=== PATIENT | male | born 1945 | race Caucasian/White ===

== ENCOUNTER → 2017-09-14 | Outpatient (CLI) | payer OTHER, MEDICARE ==
[~2017-09-14] MED LIST: IOPAMIDOL (ISOVUE-300) 100 ML BTL ONE
== END ==
LOC: FIMAGING 10:27
PROVIDERS: ATTEND Family Medicine
DX: R49.0 Dysphonia (principal); J98.4 Other disorders of lung; I25.10 Atherosclerotic heart disease of native coronary artery without angina pectoris
CPT/HCPCS: 71260; Q9967

== ENCOUNTER → 2017-10-16 | Outpatient (CLI) | payer OTHER, MEDICARE | PROVIDERS: ATTEND Psychiatry & Neurology Neurology | DX: R13.10 Dysphagia, unspecified (principal); J38.00 Paralysis of vocal cords and larynx, unspecified | CPT/HCPCS: 74220; 74230; 92611; G8996; G8997; G8998 ==

== ENCOUNTER → 2017-10-20 | Outpatient (CLI) | payer OTHER, MEDICARE | LOC: FIMAGING 10:16 | PROVIDERS: ATTEND Psychiatry & Neurology Neurology | DX: R13.10 Dysphagia, unspecified (principal); R47.1 Dysarthria and anarthria ==

== ENCOUNTER → 2017-10-26 | Outpatient (CLI) | payer OTHER, MEDICARE | LOC: BHFA 13:30 | PROVIDERS: ATTEND Internal Medicine Cardiovascular Disease | DX: R94.31 Abnormal electrocardiogram [ECG] [EKG] (principal) | CPT/HCPCS: 78452; 93017; A9500 ==

== ENCOUNTER → 2017-11-08 | Outpatient (CLI) | payer OTHER, MEDICARE | LOC: BHLMT 10:00 | PROVIDERS: ATTEND Internal Medicine Interventional Cardiology | DX: R94.31 Abnormal electrocardiogram [ECG] [EKG] (principal); R01.1 Cardiac murmur, unspecified; R09.89 Other specified symptoms and signs involving the circulatory and respiratory systems; I25.10 Atherosclerotic heart disease of native coronary artery without angina pectoris | CPT/HCPCS: 93306-PO; 93880-PO ==

== ENCOUNTER → 2017-11-16 | Outpatient (CLI) | payer OTHER, MEDICARE ==
[~2017-11-16] MED LIST changes: +IOPAMIDOL (ISOVUE 370) 100 ML BTL IV ONE; -IOPAMIDOL (ISOVUE-300) 100 ML BTL ONE
== END ==
LOC: FIMAGING 13:44
PROVIDERS: ATTEND Internal Medicine Cardiovascular Disease
DX: I67.2 Cerebral atherosclerosis (principal); I65.23 Occlusion and stenosis of bilateral carotid arteries; E78.00 Pure hypercholesterolemia, unspecified; I10 Essential (primary) hypertension
CPT/HCPCS: 70498; Q9967

== ENCOUNTER 2017-12-15 07:59 | Day surgery (SDC) | payer OTHER, MEDICARE ==
[2017-12-15] MEDS ORDERED: FAMOTIDINE 20 MG TAB PO ONE (08:04)
[2017-12-15] MEDS ORDERED: DIAZEPAM 5 MG TAB PO ONE (08:04)
[2017-12-15] MEDS ORDERED: diphenhydrAMINE 25 MG CAP PO ONE ×2 (08:04→08:41)
[2017-12-15] MEDS ORDERED: ASPIRIN EC 325 MG TAB PO ONE ×2 (08:04→08:41)
[2017-12-15] MEDS ORDERED: NS 1,000 ML IV ONE (08:04)
--- NOTE | 2017-12-15 08:33 | CPEKG ---
Heart Rate: 63 RR Interval: 952 P-R Interval: 148 QRSD Interval: 160 QT Interval: 456 QTC Interval: 467 P Allen: 13 QRS Allen: -59 T Wave Allen: -22 EKG Severity - ABNORMAL ECG - EKG Impression: SINUS RHYTHM EKG Impression: RIGHT BUNDLE BRANCH BLOCK Electronically Signed By: Rashel Gardner 16-Dec-2017 08:24:52
[2017-12-15] MEDS ORDERED: DIAZEPAM 5 MG TAB ONE (08:41)
[2017-12-15 08:51] LABS: PLATELET COUNT 205 10^3/uL (150-400)
[2017-12-15 09:07] LABS: INR 1.09 (0.83-1.16); PROTIME(PATIENT) 14.3 SEC (12.0-15.0)
[2017-12-15] MEDS ORDERED: LIDOCAINE 1% 300 MG/30 ML SDV ONE (09:08)
[2017-12-15] MEDS ORDERED: MIDAZOLAM 2 MG/2 ML VIAL ONE (09:09)
[2017-12-15] MEDS ORDERED: VERAPAMIL 5 MG/2 ML VIAL ONE (09:09)
[2017-12-15] MEDS ORDERED: HEPARIN 10,000 UNIT/10 ML MDV (1,000 UNIT/ML) ONE (09:09)
[2017-12-15] MEDS ORDERED: IOPAMIDOL (ISOVUE-370) 150 ML BTL IV ONE (09:09)
[2017-12-15] MEDS ORDERED: fentaNYL 100 MCG/2 ML INJ ONE (09:09)
--- NOTE | 2017-12-15 09:33 | PDHPUP ---
History & Physical Update H&P update statement: This history and physical update is based on an assessment of the patient which was completed after admission or registration (within 24 hours), but prior to the surgery/procedure. H&P update: H&P reviewed & patient examined, no change in patient's condition since H&P completed
--- NOTE | 2017-12-15 09:33 | PDPROPOC ---
Sedation Plan of Care ASA Classification: ASA 2 Planned drugs: fentanyl, midazolam Mallampati Score: Class 1 Mallampati Reference Image: Patient passed 3-3-2 rule?: Yes
[2017-12-15] MEDS ORDERED: HYDROCODONE/APAP 5/325 TAB PO PRN (11:11)
[2017-12-15] MEDS ORDERED: OXYCODONE/APAP 5/325 TAB PO PRN (11:11)
[2017-12-15] MEDS ORDERED: ATROPINE SULFATE 1 MG/10 ML SYR IVP PRN (11:11)
[2017-12-15] MEDS ORDERED: NITROGLYCERIN 0.4 MG BTL SL PRN (11:11)
[2017-12-15] MEDS ORDERED: ONDANSETRON 4 MG/2 ML VIAL IVP PRN (11:11)
--- NOTE | 2017-12-20 13:39 | PDDXCAT ---
Diagnostic Cath Note - . Date: 12/20/17 Designer: Tree Indication: other (Abnormal calcium score, intermediate risk stress myocardial perfusion imaging study.) - Materials Left Heart Cath size: 5F Left Heart Cath materials: JL3.5, JR4.0, pigtail - Findings-Left Heart Catheterization LM: The left main is a large caliber vessel with appropriate bifurcation into the left anterior descending and circumflex distributions. The left main has no significant high-grade disease. LAD: The left anterior descending is a large caliber transapical vessel. There are 2 diagonal branches noted. There is a 90% lesion at the ostium of the 1st diagonal branch. In the distal LAD there are tandem high-grade 80% lesions noted. The entirety of the left anterior descending is noted to be heavily calcified. LCX: The circumflex is large caliber and codominant. The PDA is identified. There is a large principal obtuse marginal that bifurcates. There is a small PL branch. There is extensive calcification without high grade disease. RCA: The right coronary artery is dominant. The PDA and 2 posterolateral branches are identified. There is a high-grade lesion (90%) appreciated in the proximal segment of the PDA. The right coronary artery is noted to be extensively calcified in the proximal segment LVEF: 65-70%. Wall motion: Normal. Complications: None. Estimated blood loss: <50ml Closure method: manual pressure Assessment: 1. Distal/branch vessel coronary artery disease as described above. 2. Preserved left ventricular systolic function with normal wall motion. 3. No significant valvular heart disease identified. 4. History of abnormal stress myocardial perfusion imaging. Plan: Medical management. Intervention: None.
== END 2017-12-15 18:52 | disposition home or self-care (01) ==
LOC: FCATH 07:59
PROVIDERS: ATTEND Internal Medicine Cardiovascular Disease
PROC: B2111ZZ Fluoroscopy of Multiple Coronary Arteries using Low Osmolar Contrast (ICD-10-PCS; principal; 2017-12-15)
PROC: 4A023N7 Measurement of Cardiac Sampling and Pressure, Left Heart, Percutaneous Approach (ICD-10-PCS; principal; 2017-12-15)
PROC: B2151ZZ Fluoroscopy of Left Heart using Low Osmolar Contrast (ICD-10-PCS; principal; 2017-12-15)
DX: I45.10 Unspecified right bundle-branch block (principal); E11.3219 Type 2 diabetes mellitus with mild nonproliferative diabetic retinopathy with macular edema, unspecified eye; I10 Essential (primary) hypertension; Z86.010 Personal history of colon polyps; E78.00 Pure hypercholesterolemia, unspecified; Z79.4 Long term (current) use of insulin
CPT/HCPCS: 93005; 93458; C1769; C1887; J1644; J2250; J3010; Q9967

== ENCOUNTER → 2019-01-21 | Outpatient (CLI) | payer OTHER, MEDICARE | LOC: BHLMT 09:15 | PROVIDERS: ATTEND Internal Medicine Cardiovascular Disease | DX: I45.10 Unspecified right bundle-branch block (principal); I35.0 Nonrheumatic aortic (valve) stenosis | CPT/HCPCS: 93306-PO ==

== ENCOUNTER 2019-02-13 08:29 | Day surgery (SDC) | payer OTHER, MEDICARE ==
[2019-02-13] MEDS ORDERED: ASPIRIN EC 325 MG TAB PO ONE (08:31)
[2019-02-13] MEDS ORDERED: DIAZEPAM 5 MG TAB PO ONE (08:31)
[2019-02-13] MEDS ORDERED: FAMOTIDINE 20 MG TAB PO ONE (08:31)
[2019-02-13] MEDS ORDERED: diphenhydrAMINE 25 MG CAP PO ONE (08:31)
[2019-02-13] MEDS ORDERED: NS 1,000 ML IV ONE (08:31)
--- NOTE | 2019-02-13 09:11 | CPEKG ---
Test Reason : OPEN Blood Pressure : / mmHG Vent. Rate : 065 BPM Atrial Rate : 064 BPM P-R Int : 149 ms QRS Dur : 164 ms QT Int : 447 ms P-R-T Axes : 016 -49 -18 degrees QTc Int : 465 ms Sinus rhythm RBBB and LAFB Confirmed by Cornell Claudio ([id number]) on 02/13/2019 9:11:01 AM Referred By: Cale Leavitt Confirmed By:Cornell Claudio
[2019-02-13 09:12] LABS: PLATELET COUNT 275 10^3/uL (150-400)
[2019-02-13 09:19] LABS: INR 1.08 (0.83-1.16); PROTIME(PATIENT) 13.6 SEC (12.0-15.0)
[2019-02-13] MEDS ORDERED: VERAPAMIL 5 MG/2 ML VIAL ONE (09:53)
[2019-02-13] MEDS ORDERED: fentaNYL 100 MCG/2 ML INJ ONE (09:53)
[2019-02-13] MEDS ORDERED: MIDAZOLAM 2 MG/2 ML VIAL ONE (09:53)
[2019-02-13] MEDS ORDERED: LIDOCAINE 1% 300 MG/30 ML SDV ONE (09:53)
[2019-02-13] MEDS ORDERED: HEPARIN 10,000 UNIT/10 ML MDV (1,000 UNIT/ML) ONE (09:53)
[2019-02-13] MEDS ORDERED: IOPAMIDOL (ISOVUE-370) 150 ML BTL IV ONE (09:54)
--- NOTE | 2019-02-13 10:13 | PDPROPOC ---
Sedation Plan of Care Sedation Plan of Care: vital signs stable, mental status noted, patient educated of risks, benefits, alternatives, patient can tolerate sedation ASA Classification: ASA 2 Planned drugs: fentanyl, midazolam Mallampati Score: Class 2 Mallampati Reference Image: Patient passed 3-3-2 rule?: Yes
[2019-02-13] MEDS ORDERED: ONDANSETRON 4 MG/2 ML VIAL IVP PRN (10:52)
[2019-02-13] MEDS ORDERED: ATROPINE SULFATE 1 MG/10 ML SYR IVP PRN (10:52)
--- NOTE | 2019-02-13 11:04 | PDDXCAT ---
Diagnostic Cath Note - . Date: 02/13/19 Heel Builder: Tree Indication: other (Severe aortic stenosis, known CAD with plans for aortic valve replacement surgery.) - Materials Left Heart Cath size: 6F Left Heart Cath materials: standard multipack (JL4, JR4, pigtail) - Findings-Left Heart Catheterization LM: Large caliber vessel. Appropriate bifurcation into the left anterior descending and circumflex distributions. There is an eccentric distal 20% lesion noted within the left main. LAD: Large caliber transapical vessel. During its course toward the apex there are 2 diagonal branches identified. Within the [place] LAD there is an eccentric proximal 20% stenosis. In the distal vessel the LAD is subtotally occluded. The distal LAD is diffusely diseased. The 1st diagonal branch is a small-caliber vessel with an 80% ostial stenosis. LCX: Moderate caliber vessel. A single bifurcating obtuse marginal branch and a posterolateral branch are identified. The superior branch of the bifurcating obtuse marginal branch contains a proximal 50% stenosis in a small caliber vessel. RCA: Moderate caliber dominant vessel. The PDA and 2 posterolateral branches are noted. Both of these vessels are small caliber. The proximal portion of the PDA is subtotally occluded. LVEF: Left ventriculography was not performed. Complications: None. Estimated blood loss: <50ml Closure method: Angioseal Assessment: 1. Coronary artery disease as described above with branch vessel disease involving the 1st diagonal branch, a superior branch of the 1st obtuse marginal and the proximal portion of the PDA. 2. Known critical aortic stenosis. Plan: The patient will undergo aortic valve replacement surgery with attempts at coronary revascularization.
== END 2019-02-13 14:00 | disposition home or self-care (01) ==
LOC: FCATH 08:29
PROVIDERS: ATTEND Internal Medicine Cardiovascular Disease
DX: I35.0 Nonrheumatic aortic (valve) stenosis (principal); I25.10 Atherosclerotic heart disease of native coronary artery without angina pectoris; I45.10 Unspecified right bundle-branch block; E11.3299 Type 2 diabetes mellitus with mild nonproliferative diabetic retinopathy without macular edema, unspecified eye; I10 Essential (primary) hypertension; E78.5 Hyperlipidemia, unspecified; F52.21 Male erectile disorder; E66.9 Obesity, unspecified; Z79.4 Long term (current) use of insulin; Z86.010 Personal history of colon polyps; Z82.49 Family history of ischemic heart disease and other diseases of the circulatory system
CPT/HCPCS: C1760; J1644; J2250; J3010; Q9967

== ENCOUNTER 2019-02-27 07:24 | Inpatient (IN) | payer OTHER, MEDICARE ==
[~2019-02-27 07:24] MED LIST changes: +ADENOSINE 6 MG/2 ML VIAL ONE; +ALBUMIN 5% 250 ML BOTTLE IV ONE; +AMINOCAPROIC ACID 5 GM/20 ML VIAL ONE; +AMIODARONE HCL 150 MG/3 ML VIAL ONE; +CALCIUM CHLORIDE 1 GM/10 ML INJ ONE; +CITRATE DEXTROSE SOLN 500 ML BAG ONE; +DOPamine/DEXTROSE 400 MG/250 ML BAG IV ONE; +HEPARIN 10,000 UNIT/10 ML MDV (1,000 UNIT/ML) ONE; -IOPAMIDOL (ISOVUE 370) 100 ML BTL IV ONE; +LIDOCAINE 2% 100 MG/5 ML SYR ONE; +MAGNESIUM SULFATE 1 GM/2 ML VIAL ONE; +MILRINONE/DEXTROSE/100 ML BAG IV ONE; +NA BICARBONATE 50 MEQ/50 ML VIAL ONE; +NITROGLYCERIN/D5W 50 MG/250 ML BOTTLE IV ONE; +PROTAMINE SULFATE 50 MG/5 ML VIAL IVP ONE; +SODIUM BICARBONATE 50 MEQ/50 ML SYR ONE; +ceFAZolin 1 GM VIAL ONE; +methylPREDNISolone SOD SUCC 1 GM/8 ML VIAL ONE; +niCARdipine/NACL/200 ML BAG IV ONE
[2019-02-27] MEDS ORDERED: MUPIROCIN 2% 22 GM OINT NS ONE (07:36)
[2019-02-27] MEDS ORDERED: CITRATE DEXTROSE SOLN 500 ML BAG MISC ONE (07:36)
[2019-02-27] MEDS ORDERED: AMINOCAPROIC ACID 5 GM/20 ML VIAL IV ONE (07:36)
[2019-02-27] MEDS ORDERED: ceFAZolin 2 GM/DEXTROSE 100 ML IV ONE (07:36)
[2019-02-27] MEDS ORDERED: LR 1,000 ML IV ONE (07:38)
[2019-02-27] MEDS ORDERED: PAPAVERINE HCL 60 MG/2 ML SDV ONE ×2 (07:48→08:29)
[2019-02-27] MEDS ORDERED: VERAPAMIL 5 MG/2 ML VIAL ONE (07:48)
--- NOTE | 2019-02-27 08:12 | PDANEPAE ---
ANE History of Present Illness CAD, ANE Past Medical History - Cardiovascular History Hx Hypertension: Yes Hx Arrhythmias: Yes Hx Chest Pain: No Hx Coronary Artery / Peripheral Vascular Disease: No Hx CHF / Valvular Disease: No Hx Palpitations: No Cardiovascular History Comment: RBBB - Pulmonary History Hx COPD: No Hx Asthma/Reactive Airway Disease: No Hx Recent Upper Respiratory Infection: No Hx Oxygen in Use at Home: No Hx Sleep Apnea: No Sleep Apnea Screening Result - Last Documented: Positive Pulmonary History Comment: PNEUMONIA X2 IN PAST. 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 - Neurologic History Hx Cerebrovascular Accident: No Hx Seizures: No Hx Dementia: No - Endocrine History Hx Diabetes: Yes Hypothyroid: No Hyperthyroid: No Endocrine History Comment: DM II - Renal History Hx Renal Disorders: No - Liver History Hx Hepatic Disorders: No - Neurological & Psychiatric Hx Hx Neurological and Psychiatric Disorders: No - Cancer History Hx Cancer: No - Congenital Disorder History Hx Congenital Disorders: No - GI History Hx Gastrointestinal Disorders: No Gastrointestinal History Comment: ACID REFLUX - Other Health History Other Health History: NEG - Chronic Pain History Chronic Pain: Yes (R KNEE, L SHOULDER, R FOOT) - Surgical History Prior Surgeries: CARDIAC CATH X2 LAST 03/15/19. CATARACTS. TONSILLECTOMY. WISDOM TEETH. APPENDECTOMY. ABD ABSCESS. COLONOSCOPIES ANE Review of Systems Review of systems is: negative Review of Systems: - Exercise capacity METS (RN): 4 METS ANE Patient History - Allergies Allergies/Adverse Reactions: newspaper ink Allergy (Uncoded 10/06/17 08:24) - Home Medications Home medications: home medication list seen and reviewed Home Medications: Carvedilol [Coreg (*)] 12.5 mg PO BIDMEAL 12/08/17 [Last Taken 02/12/19] Exenatide [Byetta] 10 mcg SQ BIDMEAL 12/08/17 [Last Taken 02/13/19] Insulin Detemir [Levemir] 30 unit SQ HS 12/08/17 [Last Taken 02/12/19] Lisinopril/Hctz 20/12.5MG [Zestoretic/Prinzide 20/12.5MG (*)] 2 ea PO DAILY 12/24 [Last Taken 02/12/19] amLODIPine BESYLATE [Norvasc 5 mg (*)] 5 mg PO HS 12/08/17 [Last Taken 02/12/19] metFORMIN HCL [Glucophage 1000 mg] 1,000 mg PO BID 12/08/17 [Last Taken 08:00] Atorvastatin Calcium [Lipitor 40 mg (*)] 40 mg PO HS 12/15/17 [Last Taken ] Psyllium Husk (with Sugar) [Metamucil Packet] 1 each PO DAILY 12/15/17 [Last Taken 12/14/17 21:00] Aspirin EC [Aspirin EC 81 mg (*)] 81 mg PO HS 02/06/19 [Last Taken 02/12/19] - NPO status NPO Status: no food or drink >8 hours NPO Since - Liquids (Date): 02/26/19 NPO Since - Liquids (Time): 20:00 NPO Since - Solids (Date): 02/26/19 NPO Since - Solids (Time): 20:00 - Anes Hx Anes Hx: no prior problems - Smoking Hx Smoking Status: Never smoked - Family Anes Hx Family Anes Hx: none Family Hx Anesthesia Complications: NEG ANE Labs/Vital Signs - Vital Signs Blood Pressure: 149/65 Heart Rate: 59 Respiratory Rate: 9 O2 Sat (%): 99 Height: 172.72 cm Weight: 90.718 kg ANE Physical Exam - Airway Neck exam: FROM Mallampati Score: Class 2 Mouth exam: normal dental/mouth exam - Pulmonary Pulmonary: no respiratory distress, clear to auscultation - Cardiovascular Cardiovascular: regular rate and rhythym, no murmur, rub, or gallop - ASA Status ASA Status: IV ANE Anesthesia Plan Anesthesia Plan: general endotracheal anesthesia (VOCAL CORD MAY NOT CLOSE AFTER INTUBATION, PT AND FAMILY AWARE) Lines/Monitors: arterial line, central line, KAYLEIGH
[2019-02-27] MEDS ORDERED: ROCURONIUM 100 MG/10 ML VIAL ONE (08:15)
[2019-02-27] MEDS ORDERED: PROPOFOL 200 MG/20 ML VIAL ONE (08:15)
[2019-02-27] MEDS ORDERED: fentaNYL 250 MCG/5 ML INJ ONE (08:15)
[2019-02-27] MEDS ORDERED: HEPARIN 10,000 UNIT/10 ML MDV (1,000 UNIT/ML) ONE ×3 (08:16)
[2019-02-27] MEDS ORDERED: LIDOCAINE 2% 5 ML SDV ONE (08:16)
--- NOTE | 2019-02-27 08:44 | PDHPUP ---
History & Physical Update H&P update statement: This history and physical update is based on an assessment of the patient which was completed after admission or registration (within 24 hours), but prior to the surgery/procedure. H&P update: H&P reviewed & patient examined, changes noted (CP on exertion, resolves with rest)
[2019-02-27] MEDS ORDERED: VERAPAMIL 5 MG, NITROGLYCERIN 2.5 MG, HEPARIN 500 UNIT, SODIUM BICARBONATE 0.2 MEQ in L... MISC ONE (10:00)
[2019-02-27] MEDS ORDERED: NOREPINEPHRINE BITARTRATE 16 MG in NS 250 ML IV ONE (10:00)
[2019-02-27] MEDS ORDERED: PHENYLEPHRINE HCL 50 MG in NS 250 ML IV ONE (10:00)
[2019-02-27] MEDS ORDERED: PAPAVERINE HCL 60 MG, VERAPAMIL 5 MG in SYRINGE 0 ML IV ONE (10:00)
[2019-02-27] MEDS ORDERED: MANNITOL 25% 12.5 GM/50 ML VIAL IVP ONE (10:00)
[2019-02-27] MEDS ORDERED: INSULIN REGULAR HUMAN 100 UNIT in NS 100 ML IV ONE (10:00)
[2019-02-27] MEDS ORDERED: CARDIOPLEGIC SOLUTION 1,052.8 ML PF ONE (10:00)
[2019-02-27] MEDS ORDERED: DOBUTamine/DEXTROSE 250 ML IV SCH (10:00)
[2019-02-27] MEDS ORDERED: PHENYLEPHRINE HCL 100 MCG/ML SYR ONE (10:05)
[2019-02-27] MEDS ORDERED: ePHEDrine SULFATE 25 MG/5 ML SYR ONE (10:05)
[2019-02-27] MEDS ORDERED: PROPOFOL/EMULSION 500 MG/50 ML BOTTLE IV ONE (11:14)
[2019-02-27] MEDS ORDERED: ceFAZolin 1 GM VIAL ONE ×2 (12:12)
[2019-02-27] MEDS ORDERED: NALOXONE HCL 0.4 MG/ML INJ IVP PRN (12:37)
[2019-02-27] MEDS ORDERED: PROPOFOL/EMULSION 50 ML IV ONE (12:37)
--- NOTE | 2019-02-27 12:37 | POSTANESTH ---
Post Anesthetic Evaluation Cardiovascular Status: Normal, Stable Respiratory Status: Normal, Stable Level of Consciousness/Mental Status: Unconscious Pain Control: Adequate, Prn Tx Ordered Nausea/Vomiting Control: Adequate, Prn Tx Ordered Complications Possibly Related to Anesthesia: None Noted
--- NOTE | 2019-02-27 12:45 | POSTOPPROG ---
Post Op Note Date of Operation: 02/27/19 Surgeon: Cale Cohen Assistant: Maximino Vigil PA-C Anesthesia: GET(General Endotracheal) Pre-op Diagnosis: , CAD Post-op Diagnosis: , CAD Procedure: s/p AVR with #25 Mcintosh Intuity, CABGx1 (SVG-D1), EVH left Inf/Abcess present in the surg proc area at time of surgery?: No Drains: Other (CTx3 (left pleural, right pleural, mediastinal) to pleurovac)
[2019-02-27] MEDS ORDERED: BISACODYL 10 MG SUPP PR PRN (12:46)
[2019-02-27] MEDS ORDERED: ACETAMINOPHEN 325 MG TAB PO PRN (12:46)
[2019-02-27] MEDS ORDERED: METOCLOPRAMIDE 10 MG/2 ML VIAL IVP PRN (12:46)
[2019-02-27] MEDS ORDERED: D50W 25 GM/50 ML SYR IVP PRN (12:46)
[2019-02-27] MEDS ORDERED: ACETAMINOPHEN 650 MG SUPP PR PRN (12:46)
[2019-02-27] MEDS ORDERED: MAGNESIUM HYDROXIDE 30 ML UDCUP PO PRN (12:46)
[2019-02-27] MEDS ORDERED: PANTOPRAZOLE SODIUM 40 MG VIAL IVP ONE (12:46)
[2019-02-27] MEDS ORDERED: ONDANSETRON 4 MG/2 ML VIAL IVP PRN (12:46)
[2019-02-27] MEDS ORDERED: LACTULOSE 20 GM/30 ML UDCUP PO PRN (12:46)
[2019-02-27] MEDS ORDERED: MEPERIDINE 25 MG/0.5 ML AMP IVP PRN (12:46)
[2019-02-27] MEDS ORDERED: SODIUM CL NASAL 45 ML BTL EACHNARE PRN (12:46)
[2019-02-27] MEDS ORDERED: ONDANSETRON DISINTEGRATING 4 MG TAB PO PRN (12:46)
[2019-02-27] MEDS ORDERED: CEPACOL LOZENGE PO PRN (12:46)
[2019-02-27] MEDS ORDERED: POLYETHYLENE GLYCOL 3350 17 GM PKT PO PRN (12:46)
[2019-02-27] MEDS ORDERED: ONDANSETRON 4 MG/2 ML VIAL ONE (12:49)
[2019-02-27] MEDS ORDERED: NS 1,000 ML IV SCH (13:00)
[2019-02-27] MEDS ORDERED: INSULIN REGULAR HUMAN 100 UNIT in NS 100 ML IV SCH (13:00)
[2019-02-27] MEDS ORDERED: niCARdipine/NACL 200 ML IV SCH (13:00)
[2019-02-27] MEDS: ALBUMIN 5% 250 ML IV PRN ×2 (13:29→13:45)
[2019-02-27] MEDS: fentaNYL 100 MCG/2 ML INJ IVP PRN ×3 (13:55→16:57)
[2019-02-27] MEDS ORDERED: ALBUMIN 5% 250 ML BOTTLE IV ONE ×2 (14:10→14:12)
[2019-02-27] MEDS ORDERED: ALBUMIN 5% 500 ML IV ONE ×2 (14:11→14:30)
[2019-02-27] MEDS: ceFAZolin 2 GM/DEXTROSE 100 ML IV SCH ×2 (14:22→21:56)
[2019-02-27] MEDS ORDERED: NOREPINEPHRINE BITARTRATE 16 MG in NS 250 ML IV SCH (14:30)
[2019-02-27] MEDS ORDERED: ALBUMIN 5% 250 ML IV ONE (14:30)
[2019-02-27] MEDS: POTASSIUM Cl (KCl) 50 ML IV PRN ×4 (15:32→20:39)
--- NOTE | 2019-02-27 16:05 | PDMN ---
Medical Necessity Medical necessity: Mcare IP only surgery; cpt 77861 CABG 12583 AVR
--- NOTE | 2019-02-27 16:19 | PDCONSULT ---
Standard Machine Stitcher Note: ASSESSMENT 73-year-old male with severe aortic stenosis and coronary disease status post AVR and CABG # severe aortic stenosis s/p bioprosthetic AVR # CAD s/p 1vCABG # post operative respiratory failure, expected # obesity # DM # GERD # HTN PLAN # wean to extubate # continue pacing until hemodynamics improve # asa 81 # insulin gtt # pantoprazole # hold OP antihypertensives # warfarin when tolerating PO # pain and bowel regimen CC shortness of breath and chest pain HPI Richar is a very pleasant 73-year-old male with multiple medical problems to was found to have severe aortic stenosis well as coronary disease. He was evaluated by Cardiology and Cardiothoracic surgery who fell as best he undergo open repair and CABG. He also has type 2 diabetes, central hypertension reflux. 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 Due to mental status unable to obtain further history from patient as he is intubated sedated MED HX Aortic stenosis, coronary disease, type 2 diabetes, BC, hyperlipidemia, GERD, hypertension, SOCIAL HISTORY , 5 children. Lives in [facility]. 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 Review of systems Unable to be obtained due to patient's mental status Physical exam Afebrile, paced at 80, map 75, respirations 12 98% on 40% FiO2 on ventilator GEN: Intubated, sedated NEURO: Intubated, sedated HEENT: ET tube placed in place, right IJ Cordis and triple-lumen in place CHEST midline sternotomy scar clean dry and intact mediastinal drains in place CVS: rrr no m/r/g, no JVD appreciated PULM: Mechanical breath sounds no tachypnea ABD: soft, NT, ND, NABS EXT: no swelling, no cyanosis, full ROM SKIN: warm, dry, intact, no rash PSYCH sedated Labs reviewed I personally reviewed interpreted radiographic images well as formal radiology reads 02/27/[address] wires in place. Support lines and tubes in place. No pneumothorax or focal infiltrate
[2019-02-27] MEDS: SENNOSIDES/DOCUSATE SODIUM TAB PO SCH (21:02)
[2019-02-27] MEDS: MUPIROCIN 2% 22 GM OINT NS SCH (21:16)
[2019-02-28 04:49] LABS: PLATELET COUNT 137 10^3/uL (150-400)
[2019-02-28] MEDS: HYDROCODONE/APAP 5/325 TAB PO PRN ×4 (06:34→18:17)
[2019-02-28] MEDS: ceFAZolin 2 GM/DEXTROSE 100 ML IV SCH ×3 (06:35→22:00)
--- NOTE | 2019-02-28 07:54 | SOAPPROG ---
SOAP Progress Note Assessment/Plan: Assessment: POD#1 AVR #25 Intuity Elite bioprosthesis, CABG x 1 (SV-D1), EVH LLE Sx severe - s/p rapid deployment tissue AVR. Stable early postop course. No prolonged vasoactive support or backup pacing. Moderate volume overload well tolerated. Antithrombotic prophylaxis with Coumadin x 2 mo, target INR 2-3, once CTs out. AF prophylaxis with BB as allowed by HR and BP. CAD w preserved LV systolic fx - Diag deemed only branch vessel suitable for bypass. Secondary prevention w ASA, BB, and statin when appropriate. Acute expected blood loss anemia - Stable. No transfusions needed. No evidence active bleeding. VTE prophylaxis with SCDs for now. DM2 - Poorly controlled by preop A1c of 10%. Postop hyperglycemia controlled w insulin gtt. Transition to basal/bolus insulin per hospitalist. Idiopathic left vocal cord paralysis - Prior dysphagia improved with bulk injections. Extubated without incident. Phonating well. Swallow intact. Follow. Plan: Routine POD#1 orders re. lines, wires, orals, and mobility. Low threshold for RESEARCH ANIMAL FACILITY SUPERVISOR consult. Colloid prn CVP < 8. Consider removal ant mediastinal drain later today. Tx to PCU. 02/28/19 07:46 Subjective: Feels more comfortable than expected. Not as thirsty as last night. 1,000 on IS. Objective: Vital Signs Temp Pulse Resp BP Pulse Ox 37.1 C 64 21 H 120/46 L 92 02/28/19 07:00 02/28/19 07:00 02/28/19 06:38 02/28/19 07:00 02/28/19 07:00 Laboratory Results 02/28/19 04:30 02/28/19 04:30 02/27/19 02/28/19 03/01/19 05:59 05:59 05:59 Intake Total 2183 Output Total 1132 Balance 1051 Extubated yest afternoon. No gtts overnoc. CI > 2.5, SVO2 > 73. Borderline low UOP and CVP/PAD w marginal UOP but stable Cr. Holding SR 60s. No backup pacing. No sig CTOP. CXR-> No PTX, min pulm vasc congestion, no undrained effusions. Labs as expected. Physical Exam - Physical Exam General Appearance: alert, no apparent distress Respiratory: lungs clear, other (CTs x 3 y-d to pleurovac, serosang drainage, + tidal, no air leak) Cardiac/Chest: regular rate, rhythm, other (Sternal dressing CDI. Vwires intact) Abdomen: normal bowel sounds, non-tender, soft Skin: warm/dry Extremities: swelling (1+ general), other (LLE leg wrap intact) ICD10 Worksheet Patient Problems: Problems Problem Status Onset Acute blood loss anemia Acute Aortic stenosis Acute CAD (coronary artery disease) Acute S/P AVR (aortic valve replacement) Acute S/P CABG x 1 Acute Vocal cord paralysis, unilateral complete Chronic
[2019-02-28] MEDS: PANTOPRAZOLE SODIUM 40 MG TAB PO SCH (08:45)
[2019-02-28] MEDS: SENNOSIDES/DOCUSATE SODIUM TAB PO SCH ×2 (08:45→22:00)
[2019-02-28] MEDS ORDERED: ASPIRIN 81 MG CHEWABLE TAB PO SCH (09:00)
[2019-02-28] MEDS: MUPIROCIN 2% 22 GM OINT NS SCH ×2 (11:03→21:59)
--- NOTE | 2019-02-28 11:55 | GOP ---
[f rep st] OPERATIVE REPORT DATE OF OPERATION: 02/27/2019 SURGEON: Cale Cohen MD SPORTS OFFICIAL: Maximino Vigil PA-C PREOPERATIVE DIAGNOSIS: 1. Severe aortic stenosis. 2. Coronary artery disease. POSTOPERATIVE DIAGNOSIS: 1. Severe aortic stenosis. 2. Coronary artery disease. PROCEDURE PERFORMED: 1. Aortic valve replacement using a 25 mm Mcintosh Intuity bioprosthesis. 2. Single-vessel coronary bypass grafting with saphenous vein graft from aorta to diagonal-1. 3. Endoscopic vein harvest from the left leg. FINDINGS: The pericardial space was free. The aorta was soft. The aortic valve was heavily calcifi ed and severely stenotic. There was fusion of the left and right cusps of the aortic valve. The dis chad LAD was essentially like a bone. It was calcified throughout its entire length. It was very sma ll and diffusely diseased, and this was not grafted. The diagonal was good quality 1.5 mm vessel. S imilarly, the distal PDA was too small for grafting. INDICATIONS: The patient has been experiencing progressive dyspnea and shortness of breath on exertion. He was al so experiencing fatigue and he underwent cardiac catheterization, which reveals a subtotally occluded , diffusely disease, heavily calcified LAD, 80% diagonal lesion and a lesion in the very distal PDA. He was recommended to undergo aortic valve replacement for his severe aortic stenosis identified on echocardiography and coronary bypass grafting to suitable targets. DESCRIPTION OF PROCEDURE: Patient was taken to the operating room, placed on the operating table in supine position. After the induction of general anesthesia and single endotracheal tube intubation, the patient was prepped and draped sterilely. A standard median sternotomy was performed while saphe nous vein was harvested from the left leg using a minimally invasive endoscopic technique. Patient w as heparinized and cannulated with a Sarns 8.0 soft flow aortic cannula, as well as a dual stage veno us right atrial cannula. Cardiopulmonary bypass was instituted. The distal vessels were inspected and the findings are described above. Next, a cross-clamp was appl ied, and the heart was arrested with 1 L of [place] solution. While vein was being harvested, we op ened the aorta, resected the valve, and sized it to a 25 mm Intuity. Once the vein was ready, we tur juan pablo our attention to the diagonal. This was opened and anastomosed end-to-side to a vein graft using running 7-0 Prolene. Next, we returned to the aortic valve. Sutures were placed in the noris of each of the cusps. The 2 5 mm valve was seated without difficulty. The balloon was expanded, and then, the sutures were secur ed with a Cor-knot device. The aorta was then closed in 2 layers, and then, a 4.4 mm punch aortotomy was created and the vein graft was anastomosed end-to-side to the ascending aorta using running 6-0 Prolene. This was de-aired and allowed to flow freely. Left, right, and mediastinal chest tubes were placed, as well as 2 ventricular pacing wires. The pat ient was from bypass without difficulty, and the post-pump transesophageal echo shows prese rvation of left ventricular function and a normally functioning bioprosthetic valve in the aortic pos ition. Protamine was administered, and the patient was decannulated. All the cannulation sites were doubly secured with Prolene suture, and after hemostasis had been achieved, the heart was covered wi th pericardium and fat, and the chest was closed with #6 stainless steel wires. Subcutaneous tissue and skin were closed with running Vicryl suture. The patient tolerated the procedure well. /[id number]/MODL
--- NOTE | 2019-02-28 11:57 | ASMTCASEMG ---
Living Arrangements What is your living Answers: With Spouse arrangement? Who do you live with? Type Of Residence What kind of residence do Answers: House you live in? 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 Patient admitted for coronary artery bipass graft and valve aortic replacement repair. PT/OT evals ordered. D/C plan TBD. CM will follow. Date Signed: 02/28/2019 11:55 AM Electronically Signed By:Zoe Atkins LCSW
[2019-02-28] MEDS: traMADol 50 MG TAB PO PRN ×2 (15:24→22:00)
[2019-02-28] MEDS: INSULIN LISPRO 100 UNIT/ML SC SCH (18:12)
--- NOTE | 2019-02-28 20:22 | GCON ---
[f rep st] CONSULTATION DATE OF CONSULTATION: 02/28/2019 HISTORY OF PRESENT ILLNESS: The patient is a 73-year-old gentleman with history of diabetes, aortic stenosis and coronary artery disease, who is postop day 1 from an aortic valve replacement and 1-vess el bypass. I am asked to see him with regard to his diabetes management. He has had type 2 diabetes for a number of years. Historically his A1cs have been reasonably well controlled in the mid 7's to mid 8's. His most recent was 10. He is surprised by this, although he does note that his morning b lood sugars have been creeping up and had been in the 130-230 range over the last few months. It sonia nds like he is active and walks with his , but is not necessarily particularly compliant with a l ow glycemic index diet. He has been compliant with his medicines. Currently in the hospital, his blood sugars are doing very well with a morning blood sugar of 84 this morning, and glucoses of 130 at the highest. He is currently on lispro sliding scale only. No feve r, chills, cough, sputum, nausea, vomiting, diarrhea. PAST MEDICAL HISTORY: Type 2 diabetes, aortic valve stenosis, coronary artery disease, left vocal co rd paralysis, hyperlipidemia. SOCIAL HISTORY: He is with 5 children. He is from [facility]. 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 FAMILY HISTORY: Reviewed and unremarkable. ALLERGIES: Newspaper ink. MEDICATIONS: Medications at home: Amlodipine, aspirin, atorvastatin, carvedilol, Byetta, Levemir in sulin, lisinopril/hydrochlorothiazide, metformin, psyllium husk. PHYSICAL EXAMINATION: VITAL SIGNS: Temp 36.6, blood pressure 124/60, pulse 73, breathing 12 times a minute, 96% on 4 L. GENERAL: No acute distress. HEENT: Sclerae anicteric. Oropharynx clear. Mu cous membranes moist. NECK: Supple. No lymphadenopathy or JVD. LUNGS: Clear to auscultation bila terally. CHEST: Incision is clean, dry, and intact. ABDOMEN: Soft, nontender, nondistended. LOWE R EXTREMITIES: No edema. Calves nontender. SKIN: Without rash. NEUROLOGIC: Exam is nonfocal. LABS: White count 11.5 this morning, hemoglobin 31, platelets 137. He had unremarkable gas during s urgery with blood gas during surgery. Chem 7 this morning, sodium 141, potassium 3.9, chloride 113, bicarb 21, BUN 16, creatinine 0.5, Glucose as in the HPI. I discussed the case today with Kevin Parkinson, his Cardiothoracic PA. ASSESSMENT/PLAN: 73-year-old gentleman with type 2 diabetes postop day 1 from coronary artery bypass graft, aortic valve replacement. 1. Diabetes. His blood sugars are currently well controlled here. I acknowledged that his outpatie nt control could use some improvement. His A1c is somewhat out of step and we will repeat in the [facility] for verification, although I do suspect it is an accurate number. His outpatient regimen of Lev manpreet, metformin, and Byetta is reasonable and has probably done him well in the past. He acknowledge s that he has perhaps gained some weight and that etiology. At this point in time, I woul d recommend outpatient followup and perhaps the institution of short-acting insulin. 2. Aortic valve replacement. The patient is currently postop day 1. 3. Pain. The patient has pain related to his sternotomy. It is reasonably well controlled. 4. Hypoxia. Consistent with post cardiothoracic surgery. Continue incentive spirometry. 5. Prophylaxis. Recommend deep vein thrombosis prophylaxis when safe from a cardiothoracic surgery perspective. DISPOSITION: Inpatient status. Thank for the consultation. We will follow with you. /[id number]/MODL
[2019-03-01] MEDS: traMADol 50 MG TAB PO PRN ×2 (06:15→22:19)
[2019-03-01 06:42] LABS: PLATELET COUNT 124 10^3/uL (150-400)
[2019-03-01] MEDS ORDERED: FUROSEMIDE 40 MG/4 ML VIAL IVP ONE (07:00)
[2019-03-01] MEDS: PANTOPRAZOLE SODIUM 40 MG TAB PO SCH (08:06)
[2019-03-01] MEDS: SENNOSIDES/DOCUSATE SODIUM TAB PO SCH ×2 (08:06→22:18)
[2019-03-01] MEDS: CARVEDILOL 3.125 MG TAB PO SCH ×2 (08:06→18:20)
[2019-03-01] MEDS: MUPIROCIN 2% 22 GM OINT NS SCH (08:08)
--- NOTE | 2019-03-01 08:12 | SOAPPROG ---
SOAP Progress Note Assessment/Plan: Assessment: POD#2 AVR #25 Intuity Elite bioprosthesis, CABG x 1 (SV-D1), EVH LLE Sx severe - s/p rapid deployment tissue AVR. Stable early postop course. No prolonged vasoactive support or backup pacing. Moderate volume overload well tolerated. Antithrombotic prophylaxis with Coumadin x 2 mo, target INR 2-3, once CTs out. Mediastinal drain removed yest. AF prophylaxis with BB as allowed by HR and BP. CAD w preserved LV systolic fx - Diag deemed only branch vessel suitable for bypass. Secondary prevention w ASA, BB, and statin when appropriate. Acute expected blood loss anemia - Stable. No transfusions needed. No evidence active bleeding. VTE prophylaxis with SCDs for now. DM2 - Poorly controlled by preop A1c of 10%. Postop hyperglycemia controlled w insulin gtt. Transition to basal/bolus insulin per hospitalist. Idiopathic left vocal cord paralysis - Prior dysphagia improved with bulk injections. Extubated without incident. Phonating well. Swallow intact. Follow. Plan: Split pleural CTs to individual pleurovacs Consider removal of 1 or both tubes later today Restart Coreg @ 3.125 mg BID Start daily diuresis Cont inc activity as tolerated Dispo - Anticipate home +/- home services in 2 days Baseline postop echo on Mon if still here. 03/01/19 08:10 Subjective: Comfortable. Improving mobility, stamina and appetite. Objective: Vital Signs Temp Pulse Resp BP Pulse Ox 36.7 C 90 18 135/64 H 94 03/01/19 07:20 03/01/19 07:20 03/01/19 07:20 03/01/19 07:20 03/01/19 07:20 Laboratory Results 03/01/19 06:25 03/01/19 06:25 02/28/19 03/01/19 03/02/19 05:59 05:59 05:59 Intake Total 2183 1085 Output Total 1132 1040 300 Balance 1051 45 -300 Uptrending HR and SBP Mod suppl O2 req Positive fluid balance. +5kg overall. CTOP appearing removal criteria, but sizable dump post ambulation CXR-> mild pulm vasc congestion, no undrained effusions Labs ok Physical Exam - Physical Exam General Appearance: alert, no apparent distress Respiratory: crackles (bases), other (CTs x 2 y-d to pleurovac, thin serosang drainage, + tidal, no air leak) Cardiac/Chest: regular rate, rhythm, other (Sternotomy CDI. Vwires intact.) Abdomen: non-tender, soft Skin: warm/dry Extremities: swelling (1+ gen), other (LLE venotomy CDI) ICD10 Worksheet Patient Problems: Problems Problem Status Onset Acute blood loss anemia Acute Aortic stenosis Acute CAD (coronary artery disease) Acute S/P AVR (aortic valve replacement) Acute S/P CABG x 1 Acute Vocal cord paralysis, unilateral complete Chronic
[2019-03-01] MEDS: INSULIN LISPRO 100 UNIT/ML SC SCH ×3 (08:31→18:20)
[2019-03-01] MEDS ORDERED: PSYLLIUM METAMUCIL 1 PKT PO SCH (09:00)
[2019-03-01] MEDS: INSULIN GLARGINE 100 UNITS/ML UNIT SC SCH (09:31)
[2019-03-01] MEDS: HYDROCODONE/APAP 5/325 TAB PO PRN (11:32)
--- NOTE | 2019-03-01 12:03 | HOSPPROG ---
Hospitalist Progress Note Assessment/Plan: 73 yo M w dm pod 2 from 1 vessel cabg/avr hyperglycemia: add 10 of lantus this AM continue lispro ss may need to increase aggressiveness of ss goal < 200 DM: repeated a1c 9.5 needs improved control i have called his pcp for outpt follow up pain: moderately well controlled constipation: getting miralax now proph: per CT surgery dispo: inpt Subjective: cxr w bibasilar atelectasis, chest tubes, no large pneumothorax ( interp by me). case d/w jose andre, CT surgery PA. AM glucose 200 Objective: Vital Signs Temp Pulse Resp BP Pulse Ox 37.1 C 97 18 118/64 96 03/01/19 11:12 03/01/19 11:12 03/01/19 11:12 03/01/19 11:12 03/01/19 11:12 Laboratory Results 03/01/19 06:25 03/01/19 06:25 02/28/19 03/01/19 03/02/19 05:59 05:59 05:59 Intake Total 2183 1085 175 Output Total 1132 1040 300 Balance 1051 45 -125 - Physical Exam Constitutional: no apparent distress, appears nourished Eyes: PERRL, anicteric sclera Ears, Nose, Mouth, Throat: moist mucous membranes, hearing normal Cardiovascular: regular rate and rhythym, no murmur, rub, or gallop Respiratory: no respiratory distress, no rales or rhonchi Gastrointestinal: normoactive bowel sounds, soft, non-tender abdomen Genitourinary: no bladder fullness, No bourgeois in urethra Skin: warm, normal color Musculoskeletal: full muscle strength, no muscle tenderness Neurologic: AAOx3 Psychiatric: interacting appropriately ICD10 Worksheet Patient Problems: Problems Problem Status Onset Acute blood loss anemia Acute Aortic stenosis Acute CAD (coronary artery disease) Acute S/P AVR (aortic valve replacement) Acute S/P CABG x 1 Acute Vocal cord paralysis, unilateral complete Chronic
[2019-03-01] MEDS ORDERED: AMIODARONE HCL 100 ML IV ONE (16:08)
[2019-03-01] MEDS ORDERED: AMIODARONE HCL 200 ML IV ONE (16:08)
[2019-03-01] MEDS: ASPIRIN EC 81 MG TAB PO SCH (22:19)
[2019-03-01] MEDS ORDERED: AMIODARONE HCL 540 MG in D5W 300 ML IV ONE (23:00)
[2019-03-02] MEDS: HYDROCODONE/APAP 5/325 TAB PO PRN ×2 (02:25→10:59)
[2019-03-02 07:42] LABS: INR 1.27 (0.83-1.16); PROTIME(PATIENT) 15.4 SEC (12.0-15.0)
[2019-03-02] MEDS: CARVEDILOL 3.125 MG TAB PO SCH ×2 (08:10→17:52)
[2019-03-02] MEDS: INSULIN LISPRO 100 UNIT/ML SC SCH ×3 (08:10→17:52)
[2019-03-02] MEDS: PANTOPRAZOLE SODIUM 40 MG TAB PO SCH (08:10)
[2019-03-02] MEDS: SENNOSIDES/DOCUSATE SODIUM TAB PO SCH ×2 (08:10→21:32)
[2019-03-02] MEDS: POLYETHYLENE GLYCOL 3350 17 GM PKT PO SCH (08:11)
[2019-03-02] MEDS: INSULIN GLARGINE 100 UNITS/ML UNIT SC SCH (09:47)
[2019-03-02] MEDS ORDERED: D50W 25 GM/50 ML SYR IVP PRN (11:12)
--- NOTE | 2019-03-02 11:28 | HOSPPROG ---
Hospitalist Progress Note Assessment/Plan: 73 yo M w dm pod 2 from 1 vessel cabg/avr hyperglycemia: still hyperglycemic increase lantus to 10 bid change ss to " very high" re eval tomorrow DM: repeated a1c 9.5 needs improved control i have called his pcp for outpt follow up pain: moderately well controlled constipation: moved bowels proph: per CT surgery dispo: inpt Objective: Vital Signs Temp Pulse Resp BP Pulse Ox 36.6 C 67 10 L 108/54 L 97 03/02/19 11:06 03/02/19 11:06 03/02/19 11:06 03/02/19 11:06 03/02/19 11:06 Laboratory Results 03/01/19 06:25 03/02/19 06:40 03/01/19 03/02/19 03/03/19 05:59 05:59 05:59 Intake Total 1085 2695.4 240 Output Total 1040 2510 400 Balance 45 185.4 -160 PT 15.4 SEC (12.0-15.0) H 03/02/19 06:40 INR 1.27 (0.83-1.16) H 03/02/19 06:40 - Physical Exam Constitutional: no apparent distress, appears nourished Eyes: PERRL, anicteric sclera Ears, Nose, Mouth, Throat: moist mucous membranes, hearing normal Cardiovascular: regular rate and rhythym, No systolic murmur Respiratory: no respiratory distress, no rales or rhonchi Gastrointestinal: normoactive bowel sounds, soft, non-tender abdomen Genitourinary: no bladder fullness, No bourgeois in urethra Skin: warm, normal color Musculoskeletal: full muscle strength Neurologic: AAOx3 ICD10 Worksheet Patient Problems: Problems Problem Status Onset Acute blood loss anemia Acute Aortic stenosis Acute CAD (coronary artery disease) Acute Postoperative atrial fibrillation Acute S/P AVR (aortic valve replacement) Acute S/P CABG x 1 Acute Vocal cord paralysis, unilateral complete Chronic
--- NOTE | 2019-03-02 13:48 | SOAPPROG ---
SOAP Progress Note Assessment/Plan: Assessment:POD#3 AVR #25 Intuity Elite bioprosthesis, CABG x 1 (SV-D1), EVH LLE Sx severe - s/p rapid deployment tissue AVR. Stable early postop course. No prolonged vasoactive support or backup pacing. Moderate volume overload well tolerated. Antithrombotic prophylaxis with Coumadin x 2 mo, target INR 2-3. Baseline postop echo ordered. Paroxysmal atrial fibrillation postop- Converted with IV Amio. Currently back in SR 70-90's. AF prophylaxis with Coreg. No po Amio unless Afib recurs. CAD w preserved LV systolic fx - Diag deemed only branch vessel suitable for bypass. Secondary prevention w ASA, BB, and statin when appropriate. Acute expected blood loss anemia - Stable. No transfusions needed. No evidence active bleeding. VTE prophylaxis with SCDs. DM2 - Poorly controlled by preop A1c of 10%. Postop hyperglycemia controlled w insulin gtt, transition to basal/bolus insulin per hospitalist. Idiopathic left vocal cord paralysis - Prior dysphagia improved with bulk injections. Extubated without incident. Phonating well. Swallow intact. Follow. Plan: D/c chest tubes. Keep pacing wires in place. Baseline postop echo on Mon if still here. Dispo - Anticipate home +/- home services in 2 days Subjective: Patient reports adequate pain control. No complaints. Objective: Vital Signs Temp Pulse Resp BP Pulse Ox 36.6 C 67 10 L 108/54 L 97 03/02/19 11:06 03/02/19 11:06 03/02/19 11:06 03/02/19 11:06 03/02/19 11:06 Laboratory Results 03/01/19 06:25 03/02/19 06:40 03/01/19 03/02/19 03/03/19 05:59 05:59 05:59 Intake Total 1085 2695.4 240 Output Total 1040 2510 400 Balance 45 185.4 -160 PT 15.4 SEC (12.0-15.0) H 03/02/19 06:40 INR 1.27 (0.83-1.16) H 03/02/19 06:40 Physical Exam - Physical Exam General Appearance: WD/WN, alert, no apparent distress Neck: supple Respiratory: lungs clear, normal breath sounds Cardiac/Chest: regular rate, rhythm, other (No murmurs, rubs. Sternum stable. Sternotomy c/d/i. ) Abdomen: normal bowel sounds, non-tender, soft Skin: normal color, warm/dry Extremities: other (Warm, 1+ lower extremity pitting edema) Neuro/Psych: alert, normal mood/affect, oriented x 3 ICD10 Worksheet Patient Problems: Problems Problem Status Onset Acute blood loss anemia Acute Aortic stenosis Acute CAD (coronary artery disease) Acute Postoperative atrial fibrillation Acute S/P AVR (aortic valve replacement) Acute S/P CABG x 1 Acute Vocal cord paralysis, unilateral complete Chronic
[2019-03-02] MEDS: POTASSIUM CL 20 MEQ TAB PO SCH (14:58)
[2019-03-02] MEDS: FUROSEMIDE 40 MG TAB PO SCH (14:59)
[2019-03-02] MEDS ORDERED: INSULIN GLARGINE 100 UNITS/ML UNIT SC SCH (21:00)
[2019-03-02] MEDS: ASPIRIN EC 81 MG TAB PO SCH (21:31)
[2019-03-03] MEDS ORDERED: AMIODARONE HCL 100 ML IV ONE (03:00)
[2019-03-03 03:48] LABS: INR 1.21 (0.83-1.16); PROTIME(PATIENT) 14.8 SEC (12.0-15.0)
[2019-03-03] MEDS: CARVEDILOL 3.125 MG TAB PO SCH ×2 (07:48→18:18)
[2019-03-03] MEDS: POTASSIUM CL 20 MEQ TAB PO SCH (07:48)
[2019-03-03] MEDS: PANTOPRAZOLE SODIUM 40 MG TAB PO SCH (07:48)
[2019-03-03] MEDS: FUROSEMIDE 40 MG TAB PO SCH (07:48)
[2019-03-03] MEDS: INSULIN GLARGINE 100 UNITS/ML UNIT SC SCH (07:55)
[2019-03-03] MEDS: INSULIN LISPRO 100 UNIT/ML SC SCH (07:56)
[2019-03-03] MEDS: POLYETHYLENE GLYCOL 3350 17 GM PKT PO SCH (07:57)
[2019-03-03] MEDS: SENNOSIDES/DOCUSATE SODIUM TAB PO SCH ×2 (07:57→22:04)
--- NOTE | 2019-03-03 08:52 | SOAPPROG ---
SOAP Progress Note Assessment/Plan: Assessment:POD#4 AVR #25 Intuity Elite bioprosthesis, CABG x 1 (SV-D1), EVH LLE Sx severe - s/p rapid deployment tissue AVR. Stable early postop course. No prolonged vasoactive support or backup pacing. Moderate volume overload well tolerated. Antithrombotic prophylaxis with Coumadin x 2 mo, target INR 2-3. Baseline postop echo ordered for Monday. INR 1.2. Initiate Coumadin 5mg po today. Paroxysmal atrial fibrillation postop- Two episodes postop, both which converted with IV Amio. Currently in SR 80's. AF prophylaxis with Coreg. No po Amio unless Afib persists. CAD w preserved LV systolic fx - Diag deemed only branch vessel suitable for bypass. Secondary prevention w ASA, BB, and statin. Acute expected blood loss anemia - Stable. No transfusions needed. No evidence active bleeding. VTE prophylaxis with SCDs. DM2 - Poorly controlled by preop A1c of 10%. Postop hyperglycemia controlled w insulin gtt which was transitioned to SSI and Lantus per hospitalist. Home Metformin to be resumed today. Idiopathic left vocal cord paralysis - Prior dysphagia improved with bulk injections. Extubated without incident. Phonating well. Swallow intact. Follow. Plan: D/c pacing wires. Coumadin 5mg today. Baseline postop echo ordered for tomorrow. Likely home +/- home services tomorrow. Subjective: Patient without complaints, however concerned about his elevated blood sugar readings. Reports good pain control. Objective: Vital Signs Temp Pulse Resp BP Pulse Ox 36.6 C 88 18 134/67 H 94 03/03/19 06:54 03/03/19 06:54 03/03/19 06:54 03/03/19 06:54 03/03/19 08:04 Laboratory Results 03/01/19 06:25 03/03/19 03:30 03/02/19 03/03/19 03/04/19 05:59 05:59 05:59 Intake Total 2695.4 1440 Output Total 2510 650 Balance 185.4 790 PT 14.8 SEC (12.0-15.0) 03/03/19 03:30 INR 1.21 (0.83-1.16) H 03/03/19 03:30 Physical Exam - Physical Exam General Appearance: WD/WN, alert, no apparent distress Neck: supple Respiratory: lungs clear, normal breath sounds, other (No wheezing, rhonchi. ) Cardiac/Chest: regular rate, rhythm, other (No murmurs or rubs. Sternum stable , sternotomy c/d/i. ) Abdomen: normal bowel sounds, non-tender, soft Skin: normal color, warm/dry Extremities: other (Warm, 1+ lower extremity pitting edema. ) Neuro/Psych: alert, normal mood/affect, oriented x 3 ICD10 Worksheet Patient Problems: Problems Problem Status Onset Acute blood loss anemia Acute Aortic stenosis Acute CAD (coronary artery disease) Acute Postoperative atrial fibrillation Acute S/P AVR (aortic valve replacement) Acute S/P CABG x 1 Acute Vocal cord paralysis, unilateral complete Chronic
[2019-03-03] MEDS ORDERED: POTASSIUM CL 20 MEQ TAB PO SCH (09:01)
--- NOTE | 2019-03-03 09:43 | HOSPPROG ---
Hospitalist Progress Note Assessment/Plan: 73 yo M w dm pod 4 from 1 vessel cabg/avr hyperglycemia: still hyperglycemic increase lantus to 34 units qAM change ss to "custom" re eval tomorrow DM: repeated a1c 9.5 needs improved control i have called his pcp for outpt follow up pain: moderately well controlled constipation: moved bowels proph: per CT surgery dispo: inpt Subjective: case d/w CT surgery PA. blood sugars remain elevated Objective: Vital Signs Temp Pulse Resp BP Pulse Ox 36.6 C 88 18 134/67 H 94 03/03/19 06:54 03/03/19 06:54 03/03/19 06:54 03/03/19 06:54 03/03/19 08:04 Laboratory Results 03/01/19 06:25 03/03/19 03:30 03/02/19 03/03/19 03/04/19 05:59 05:59 05:59 Intake Total 2695.4 1440 Output Total 2510 650 Balance 185.4 790 PT 14.8 SEC (12.0-15.0) 03/03/19 03:30 INR 1.21 (0.83-1.16) H 03/03/19 03:30 - Physical Exam Constitutional: no apparent distress, appears nourished Eyes: PERRL Ears, Nose, Mouth, Throat: moist mucous membranes, hearing normal Cardiovascular: regular rate and rhythym, no murmur, rub, or gallop Respiratory: no respiratory distress, no rales or rhonchi Gastrointestinal: normoactive bowel sounds, soft, non-tender abdomen Genitourinary: No bourgeois in urethra Skin: warm, normal color Musculoskeletal: full muscle strength, no muscle tenderness Neurologic: AAOx3 ICD10 Worksheet Patient Problems: Problems Problem Status Onset Acute blood loss anemia Acute Aortic stenosis Acute CAD (coronary artery disease) Acute Postoperative atrial fibrillation Acute S/P AVR (aortic valve replacement) Acute S/P CABG x 1 Acute Vocal cord paralysis, unilateral complete Chronic
[2019-03-03] MEDS: metFORMIN HCL 500 MG TAB PO SCH ×2 (10:24→18:18)
[2019-03-03] MEDS: INSULIN LISPRO 100 UNIT/1 ML SC SCH ×3 (12:39→21:59)
--- NOTE | 2019-03-03 15:16 | ASMTCMCOM ---
CM Note CM Note Notes: Reviewed chart regarding discharge plan of care, pt's progress. Pt is POD #4. Per MD notes, AV wires to be d/c'd today, echo planned for tomorrow. PT/OT have cleared pt. Pt to likely discharge home independently with family support and outpatient cardiac rehab in the next day or two. CM will continue to follow for any potential needs. Discharge Plan: Home independently Date Signed: 03/03/2019 03:16 PM Electronically Signed By:Yuliet Herzog RN
[2019-03-03] MEDS ORDERED: WARFARIN SODIUM 5 MG TAB PO ONE (16:00)
[2019-03-03] MEDS ORDERED: ATORVASTATIN CALCIUM 40 MG TAB PO SCH (21:00)
[2019-03-03] MEDS: ASPIRIN EC 81 MG TAB PO SCH (21:53)
[2019-03-04] MEDS: traMADol 50 MG TAB PO PRN (03:16)
[2019-03-04 06:52] LABS: INR 1.27 (0.83-1.16); PROTIME(PATIENT) 15.4 SEC (12.0-15.0)
--- NOTE | 2019-03-04 07:08 | SOAPPROG ---
SOAP Progress Note Assessment/Plan: POD #5: AVR #25 Intuity Elite bioprosthesis, CABG x 1 (SV-D1), EVH LLE Sx severe - s/p rapid deployment tissue AVR. Stable early postop course. No prolonged vasoactive support or backup pacing. Antithrombotic prophylaxis with Coumadin x 2 mo, target INR 2-3. Baseline postop echo ordered today. Edematous today - needs IV Lasix with oral BID Lasix on discharge. Paroxysmal atrial fibrillation postop- Two episodes postop, both which converted with IV Amio. Currently in SR 80's. AF prophylaxis with Coreg. No PO Amio unless Afib persists. CAD w preserved LV systolic fx - Diag deemed only branch vessel suitable for bypass. Secondary prevention w ASA, BB, and statin. Acute expected blood loss anemia - Stable. No transfusions needed. No evidence active bleeding. VTE prophylaxis with SCDs. DM2 - Poorly controlled by preop A1c of 10%. Postop hyperglycemia controlled w insulin gtt which was transitioned to SSI and Lantus per hospitalist. Home Metformin resumed. Idiopathic left vocal cord paralysis - Prior dysphagia improved with bulk injections. Extubated without incident. Phonating well. Swallow intact. Follow. Subjective: Might feel ready to leave later today. Will let me know. Has some left back pain. Denies SOB. Objective: Vital Signs Temp Pulse Resp BP Pulse Ox 36.7 C 82 16 127/73 H 96 03/04/19 06:41 03/04/19 06:41 03/04/19 06:41 03/04/19 06:41 03/04/19 06:41 Laboratory Results 03/01/19 06:25 03/04/19 06:20 03/03/19 03/04/19 03/05/19 05:59 05:59 05:59 Intake Total 1440 1290 Output Total 650 900 Balance 790 390 PT 15.4 SEC (12.0-15.0) H 03/04/19 06:20 INR 1.27 (0.83-1.16) H 03/04/19 06:20 Physical Exam - Physical Exam General Appearance: WD/WN, alert, no apparent distress EENT: No scleral icterus (R), No scleral icterus (L) Neck: normal inspection Respiratory: No respiratory distress Cardiac/Chest: regular rate, rhythm Abdomen: non-tender, soft, No distended Skin: normal color, warm/dry Extremities: pedal edema Neuro/Psych: no motor/sensory deficits, alert, normal mood/affect, oriented x 3 ICD10 Worksheet Patient Problems: Problems Problem Status Onset Acute blood loss anemia Acute Aortic stenosis Acute CAD (coronary artery disease) Acute Postoperative atrial fibrillation Acute S/P AVR (aortic valve replacement) Acute S/P CABG x 1 Acute Vocal cord paralysis, unilateral complete Chronic
[2019-03-04] MEDS ORDERED: FUROSEMIDE 40 MG/4 ML VIAL IVP ONE (07:45)
[2019-03-04] MEDS ORDERED: POTASSIUM CL 20 MEQ TAB PO ONE (07:46)
[2019-03-04] MEDS: metFORMIN HCL 500 MG TAB PO SCH (08:08)
[2019-03-04] MEDS: CARVEDILOL 3.125 MG TAB PO SCH (08:08)
[2019-03-04] MEDS: INSULIN GLARGINE 100 UNITS/ML UNIT SC SCH (08:09)
[2019-03-04] MEDS: PANTOPRAZOLE SODIUM 40 MG TAB PO SCH (08:09)
[2019-03-04] MEDS: INSULIN LISPRO 100 UNIT/1 ML SC SCH ×2 (08:09→13:29)
[2019-03-04] MEDS: POLYETHYLENE GLYCOL 3350 17 GM PKT PO SCH (08:10)
[2019-03-04] MEDS: SENNOSIDES/DOCUSATE SODIUM TAB PO SCH (08:10)
--- NOTE | 2019-03-04 11:24 | PDHOMEO2F ---
Home Oxygen Face to Face Home Orders: I certify that a physician or a nurse practitioner or physician's preschool assistant has had a [id number] encounter with this patient on the date of this order due to the diagnosis listed, which relates to the primary reason the patient requires home oxygen. Alternative treatments have been tried, or considered, and deemed ineffective. It is anticipated that supplemental oxygen will result in improvement with treatment. Home oxygen qualifying diagnosis: CAD, , hypoxemia, SOB, pleural effusions SpO2 on room air (%): 85 Frequency of home oxygen needed: continuous Home oxygen liters per minute: 2 Home oxygen delivery device: nasal cannula Concentrator: Yes E-tanks for mobility and back up: Yes If ordering portable O2, is the patient mobile in the home?: Yes I certify that, based on these findings, the home oxygen is medically necessary for this patient for the following length of time. Length of time home oxygen needed: 1 month
[2019-03-04 11:55] VITALS: BP 112/58
--- NOTE | 2019-03-04 12:56 | ECHO ---
[email or web address] [address] [address] Main: [phone] Echocardiography Examination Transthoracic Name: ANNI PACHECO MR#: [id number] Study Date: 03/04/2019 Study Time: 08:17 AM Date of : 1945 Age: 73 year(s) Height: 172.7 cm (68 in.) Weight: 92.99 kg (205 lb.) BSA: 2.07 m2 Gender: Male Examination: Echo Contrast: Image Quality: Rhythm: Normal sinus rhythm Heart Rate: 80 bpm BP: 127 mmHg/73 mmHg Indication: Post AVR #25 mm Mcintosh Procedure Staff Referring Physician: Chief Compliance Officer: Juan Saunders RDCS Reading Physician: Jae Zavala MD Requesting Provider: Ordering Physician: Emily Coreas Indication: Post AVR #25 mm Mcintosh Measurements Chambers AV/MV Label Value Normal Value Label Value Normal Value LVOT Vmax 0.78 m/s (0.7m/s - 1.1m/s) AV PGmax 12 mmHg LVOTd 2.5 cm (1.9cm - 2.1cm) AV PGmean 8 mmHg LVOT VTI 17 cm (18cm - 22cm) AV Vmax 1.74 m/s LVDd, 2D 4.9 cm (4.2cm - 5.9cm) DALILA (Vmax) 2.2 cm2 LVDs, 2D 3.6 cm (2.1cm - 4cm) DALILA (VTI) 2.3 cm2 IVSd, 2D 0.9 cm (0.6cm - 1.1cm) MV E Vmax 0.8 m/s LVPWd, 2D 0.9 cm (0.6cm - 1cm) MV A Vmax 0.97 m/s LVEF, 2D 57 % (54% - 74%) MV E/A 0.82 LVOT PGmean 1 mmHg MV E/E' lateral 13.8 LVOT Vmean 0.52 m/s MV E/E' septal 16.3 (0.45 - 1.25) RVDd, 2D 3.3 cm (1.9cm - 3.8cm) MV E' septal 0.05 m/s TAPSE 2 cm MV E' lateral 0.06 m/s LADs, 2D 3.6 cm (3cm - 4cm) MV E/E' mean 14.55 Additional Vessels MV E' mean 0.06 m/s Label Value Normal Value TV/PV AoRoot, MM 3.2 cm (2.2cm - 3.7cm) Label Value Normal Value RA Pressure 5 mmHg RVSP 35 mmHg TR Pmax 30 mmHg Patient: ANNI PACHECO Study Date: 03/04/2019 Page 1 of 2 08:17 AM TR Vmax 2.76 m/s PV PGmax 3 mmHg PV Vmax, Caliper 0.8 m/s (0.6m/s - 0.9m/s) Conclusions Left Ventricle: CONCLUSIONS:1)Technically limited echo.2)Normal LV size and systolic function with a LVEF of 57%.3)Mild concentric LVH with mild diastolic dysfunction noted.4)Normal functioning biprosthetic AVR with peak and mean gradients of 12 and 8mmHg respectively. No AI noted.5)Trivial MR without MV prolapse.6)Mild TR with estimated normal PA pressures.7)Trivial pericardial effusion with no tamponade. Findings Left Ventricle: Left ventricle is normal in size. CONCLUSIONS: 1)Technically limited echo. 2)Normal LV size and systolic function with a LVEF of 57%. 3)Mild concentric LVH with mild diastolic dysfunction noted. 4)Normal functioning biprosthetic AVR with peak and mean gradients of 12 and 8mmHg respectively. No AI noted. 5)Trivial MR without MV prolapse. 6)Mild TR with estimated normal PA pressures. 7)Trivial pericardial effusion with no tamponade.Left ventricle wall thickness is normal. Grade I Diastolic Dysfunction. Right Ventricle: Normal size right ventricle. Right ventricular systolic function is normal. Left Atrium: The left atrium is normal in size. Right Atrium: The right atrium is normal in size. Mitral Valve: Trivial mitral regurgitation. No mitral valve stenosis. There is mild mitral calcification. Aortic Valve: The aortic valve is a pericardial bioprosthesis measuring 25 mm. Normal functioning aortic valve prosthesis. No prosthesis regurgitation. No prosthesis stenosis. Tricuspid Valve: Mild tricuspid regurgitation. Right Ventricular systolic pressure is measured at 35 mmHg. Pulmonary artery pressure normal. Pulmonic Valve: Pulmonic leaflets are normal in appearance and function. Aorta: The aorta is normal. The aortic root size in M-mode measures 3.2 cm. Aorta Measurements AoRoot, MM is 3.2 cm. Pericardium: Trivial pericardial effusion. Exam Details Procedure Ordered: Echo (No Signature Object) Patient: ANNI PACHECO Study Date: 03/04/2019 Page 2 of 2 08:17 AM [id number]
--- NOTE | 2019-03-04 13:28 | HOSPPROG ---
Hospitalist Progress Note Assessment/Plan: 73 yo M w dm pod 5 from 1 vessel cabg/avr hyperglycemia: still hyperglycemic increase lantus to 34 units qAM change ss to "custom" re eval tomorrow rec dc on home regimen except increasing levemir to 34 DM: repeated a1c 9.5 needs improved control i have called his pcp for outpt follow up pain: moderately well controlled constipation: moved bowels proph: per CT surgery dispo: inpt Subjective: case d/w Kevin Vigil, CT surgery PA Objective: Vital Signs Temp Pulse Resp BP Pulse Ox 36.6 C 81 16 112/58 L 93 03/04/19 11:52 03/04/19 11:52 03/04/19 11:52 03/04/19 11:52 03/04/19 11:52 Laboratory Results 03/01/19 06:25 03/04/19 06:20 03/03/19 03/04/19 03/05/19 05:59 05:59 05:59 Intake Total 1440 1290 400 Output Total 627 572 3312 Balance 790 390 -900 PT 15.4 SEC (12.0-15.0) H 03/04/19 06:20 INR 1.27 (0.83-1.16) H 03/04/19 06:20 - Physical Exam Constitutional: no apparent distress, appears nourished Eyes: PERRL, anicteric sclera Ears, Nose, Mouth, Throat: moist mucous membranes, hearing normal Cardiovascular: regular rate and rhythym, no murmur, rub, or gallop Respiratory: no respiratory distress, no rales or rhonchi Gastrointestinal: normoactive bowel sounds, soft, non-tender abdomen Genitourinary: No bourgeois in urethra Skin: warm, normal color Musculoskeletal: full muscle strength, no muscle tenderness Neurologic: AAOx3 ICD10 Worksheet Patient Problems: Problems Problem Status Onset Acute blood loss anemia Acute Aortic stenosis Acute CAD (coronary artery disease) Acute Postoperative atrial fibrillation Acute S/P AVR (aortic valve replacement) Acute S/P CABG x 1 Acute Vocal cord paralysis, unilateral complete Chronic
--- NOTE | 2019-03-04 13:40 | PDDCSUM ---
Discharge Summary Discharge Summary: ADMISSION DATE: 02/27/19 DISCHARGE DATE: 03/04/19 ADMISSION DIAGNOSES 1. Severe aortic stenosis 2. Diabetes, poorly controlled by A1c of 10% 3. CAD w preserved LV systolic fx 4. Idiopathic left vocal cord paralysis DISCHARGE DIAGNOSES 1. As above 2. Acute post-op blood loss anemia 3. Post-op paroxysmal atrial fibrillation PROCEDURES 02/27/19 (Shaun Isaac): AVR #25 Intuity Elite bioprosthesis, CABG x 1 (SVG-D1), EVH LLE HPI 58F with severe and CAD admitted for elective AVR/CABG. HOSPITAL COURSE BY PROBLEM LIST 1. Severe aortic stenosis - s/p AVR. Antithrombotic prophylaxis with Coumadin x 2 mo, target INR 2-3 2. CAD w preserved LV systolic fx - diagonal deemed only branch vessel suitable for bypass. Secondary prevention w ASA, BB, and statin. 3. Diabetes, poorly controlled by pre-op A1c of 10% - postop hyperglycemia controlled w insulin gtt which was transitioned to SSI and Lantus per hospitalist. Home Metformin resumed. Byetta resumed on d/c. Home Levemir dose increased from 30 units QHS to 34 units QHS. 4. Idiopathic left vocal cord paralysis - prior dysphagia improved with bulk injections. Extubated without incident. Phonating well. Swallow intact. 5. Acute post-op blood loss anemia - stable without the need for transfusions. 6. Post-op paroxysmal atrial fibrillation - conversion to SR with IV amiodarone. Oral amiodarone avoided. Continue beta-michele for prophylaxis. Thromboprophylaxis as per AVR. 7. Post-op fluid overload - discharged on BID Lasix CONDITION Good DISPOSITION Home, self-care PERTINENT DISCHARGE CLINICAL INFORMATION Vitals: 112/58, 93 SR, 96% on 2 LPM O2, +5 Kg Exam: NAD, SR, No respiratory distress, ND, soft, NTP, BLE with +2 edema ACTIVITY Pt was instructed on activity limitations and which problems to call [facility] with. Please see Discharge Plan in chart for specifics. DISCHARGE MEDICATIONS As per Home Medication List in Handpressions PENDING STUDIES/LABS 1. CXR prior to surgical follow-up FOLLOW-UP 1. Cale Isaac (CT Surgery), 03/11/19, 12:15 AM 2. aCle Leavitt (Cardiology), to be arranged at surgical f/u
[2019-03-04] MEDS ORDERED: POTASSIUM CL 20 MEQ TAB PO SCH (15:00)
[2019-03-04] MEDS ORDERED: FUROSEMIDE 40 MG/4 ML VIAL IVP SCH (15:00)
[2019-03-04] MEDS ORDERED: WARFARIN SODIUM 5 MG TAB PO ONE (16:00)
[2019-03-05] MEDS ORDERED: WARFARIN SODIUM 5 MG TAB PO SCH (16:00)
== END 2019-03-04 16:45 | disposition home or self-care (01) | DRG 220 ==
LOC: F3N 07:24 → F2N 07:28 → F2W 02-28 14:15
PROVIDERS: ADMIT Thoracic Surgery (Cardiothoracic Vascular Surgery); ATTEND Thoracic Surgery (Cardiothoracic Vascular Surgery)
PROC: 02RF08Z Replacement of Aortic Valve with Zooplastic Tissue, Open Approach (ICD-10-PCS; principal; 2019-02-27 08:45)
PROC: 5A1221Z Performance of Cardiac Output, Continuous (ICD-10-PCS; principal; 2019-02-27 08:45)
PROC: 06BQ4ZZ Excision of Left Saphenous Vein, Percutaneous Endoscopic Approach (ICD-10-PCS; principal; 2019-02-27 08:45)
PROC: 021009W Bypass Coronary Artery, One Artery from Aorta with Autologous Venous Tissue, Open Approach (ICD-10-PCS; principal; 2019-02-27 08:45)
DX: I35.0 Nonrheumatic aortic (valve) stenosis (principal); I25.10 Atherosclerotic heart disease of native coronary artery without angina pectoris; D62 Acute posthemorrhagic anemia; I48.0 Paroxysmal atrial fibrillation; E11.65 Type 2 diabetes mellitus with hyperglycemia; I10 Essential (primary) hypertension; E78.5 Hyperlipidemia, unspecified; K21.9 Gastro-esophageal reflux disease without esophagitis; J38.00 Paralysis of vocal cords and larynx, unspecified; Z86.010 Personal history of colon polyps
CPT/HCPCS: 82435-PO; 82565-PO; 82947-PO; 83605-ER; 84132-PO; 84295-PO; 84520-PO; 85014-ER; 97110-GP; 97116-GP; 97162-GP; 97165-GO; 97530-GO; 97530-GP; 97535-GO; J0153; J0282; J0690; J1250; J1265; J1644; J1815; J1940; J2001; J2150; J2260; J2270; J2370; J2405; J2440; J2704; J2720; J2930; J3010; J3475; J3480; P9041

== ENCOUNTER → 2019-03-11 | Outpatient (CLI) | payer OTHER, MEDICARE | LOC: FIMAGING 11:07 | PROVIDERS: ATTEND Thoracic Surgery (Cardiothoracic Vascular Surgery) | DX: J98.11 Atelectasis (principal); J94.9 Pleural condition, unspecified; Z95.2 Presence of prosthetic heart valve ==